=== PATIENT | male | born 1985 | race Two or more races ===

== ENCOUNTER 2017-08-02 12:36 | Emergency (ER) | payer OTHER ==
[2017-08-02 12:40] VITALS: BP 144/77; PULSE 100; TEMP 98; BMI 36.2
[2017-08-02] MEDS ORDERED: KETOROLAC TROMETHAMINE 60 MG/2 ML VIAL IM ONE (14:44)
[2017-08-02] MEDS ORDERED: diazePAM 5 MG TABLET PO ONE (14:44)
--- NOTE | 2017-08-02 14:44 | PDOC ---
History of Present Illness - General Chief Complaint: Back Pain Stated Complaint: BACK PAIN Time Seen by Provider: 08/02/17 14:38 History Source: Patient Exam Limitations: No Limitations - History of Present Illness Initial Comments: 08/02/17 14:38 CHIEF COMPLAINT: [right lateral Lower back pain right shoulder pain after shoveling one week ago] HISTORY OF PRESENT ILLNESS:[32]-year-old [male],[ history of low back pain and reports last week he was shoveling and afterwards felt pain to right lateral lower back and right shoulder. Has had similar in the past. Has been taking Advil with minimal relief. Nonradiating pain, no neurosensory deficits, no bowel or bladder difficulty incontinence or urinary retention, no saddle anesthesia, no footdrop. No history of IVDU or history of cancer. ] REVIEW OF SYSTEMS: GENERAL: Afebrile, denies any weakness RESPIRATORY: No cough, wheezing, or hemoptysis. CARDIAC: No chest pain or shortness of breath MUSCULOSKELETAL: Pain to generalized lower back. No point tenderness. Pain worse on [right than left. ] SKIN : No erythema, no bruising, no deformity. GI/: Denies any abdominal pain, no urinary difficulty, incontinence or urinary retention. RECTAL: Denies any difficulty this A.m. NEUROLOGICAL: Denies any numbness or tingling. No neurosensory deficits. PHYSICAL EXAM: GENERAL: The patient is awake, alert, and fully oriented, in no acute distress. RESPIRATORY: Lungs clear bilaterally, no rhonchi wheezes or crackles CARDIAC: S1-S2 audible, no murmur rub or gallop MUSCULOSKELETAL: Pain to generalized lower back, nonradiating, no tingling or sensory deficit. Less than 2 second cap refill, +4 popliteal and pedal pulses. GI/: Abdomen soft, nontender, nondistended. No rebound tenderness. No masses palpable. MUSCULOSKELETAL: No spinal point tenderness. Normal reflexive and no deficits to sensation or strength. RECTAL: [Deferred patient with no neurological findings] SKIN: Warm, Dry, normal turgor, no erythema, no edema no bruising. Past History - Past Medical History Allergies/Adverse Reactions: Allergies Allergy/AdvReac Type Severity Reaction Status Date / Time shellfish derived Allergy Intermediate Itching Verified 08/02/17 12:37 No Known Drug Allergies Allergy Verified 08/02/17 12:37 Home Medications: Ambulatory Orders Cyclobenzaprine HCl [Flexeril 10 mg] 10 mg PO BID PRN #20 tablet 08/02/17 Methylprednisolone [Medrol Dose Nestor] 4 mg PO ASDIR #21 tablet 08/02/17 COPD: No GI Disorders: Yes (COLITIS) - Immunization History Immunization Up to Date: No (NO FLU) - Suicide/Smoking/Psychosocial Hx Smoking History: Current every day smoker Have you smoked in the past 12 months: Yes Number of Cigarettes Smoked Daily: 10 Information on smoking cessation initiated: Yes 'Breaking Loose' booklet given: 08/02/17 Hx Alcohol Use: No Drug/Substance Use Hx: No Substance Use Type: None Hx Substance Use Treatment: No Trauma Specific PMHX - Complaint Specific PMHX Back Injury: Yes Neck Injury: No *Physical Exam - Vital Signs Last Vital Signs Temp Pulse Resp BP Pulse Ox 98.0 F 100 H 18 144/77 96 08/02/17 12:37 08/02/17 12:37 08/02/17 12:37 08/02/17 12:37 08/02/17 12:37 Medical Decision Making - Medical Decision Making 08/02/17 14:44 A/P: Patient here with lower back pain, chronic in nature exacerbated after shoveling snow I will give Toradol and Valium, then reevaluate 08/02/17 15:47 Patient reports that pain is better after medication will discharge patient home on Medrol Dosepak and Flexeril, follow-up with PMD if any increased pain numbness or tingling bowel or bladder difficulty or any other concerns return to ER *DC/Admit/Observation/Transfer Diagnosis at time of Disposition: Lower back pain Qualifiers: Chronicity: acute Back pain laterality: right Sciatica presence: with sciatica - Discharge Dispostion Disposition: HOME Condition at time of disposition: Stable Admit: No - Prescriptions Prescriptions: Cyclobenzaprine HCl [Flexeril 10 mg] 10 mg PO BID PRN #20 tablet PRN Reason: Pain Methylprednisolone [Medrol Dose Nestor] 4 mg PO ASDIR #21 tablet - Referrals Referrals: Leoncio Vargas MD [Staff Physician] - - Patient Instructions Printed Discharge Instructions: DI for Low Back Pain Additional Instructions: 1. Please return to the emergency department with any numbness, tingling, weakness, numbness or tingling to groin or legs, or loss of bowel or bladder function. 2. Use pain medication as ordered. 3. Please is to followup in the office of Dr. Vargas for evaluation within a week if no improvement. 4. Ice or heat 5. Refrain from lifting anything above 10 pounds, until pain resolved. - Post Discharge Activity Forms/Work/School Notes: Back to Work
[2017-08-02] MEDS ORDERED: KETOROLAC TROMETHAMINE 60 MG/2 ML VIAL ONE (14:47)
[2017-08-02] MEDS ORDERED: diazePAM 5 MG TABLET ONE (14:47)
== END 2017-08-02 15:50 | disposition home or self-care (01) ==
LOC: JERFT 12:36
PROC: 3E0233Z Introduction of Anti-inflammatory into Muscle, Percutaneous Approach (ICD-10-PCS; principal; 2017-08-02)
DX: M54.41 Lumbago with sciatica, right side (principal); F17.210 Nicotine dependence, cigarettes, uncomplicated; X50.0XXA Overexertion from strenuous movement or load, initial encounter; Y93.H1 Activity, digging, shoveling and raking; Y92.89 Other specified places as the place of occurrence of the external cause; Y99.8 Other external cause status
CPT/HCPCS: 99281-25

== ENCOUNTER 2018-08-06 20:58 | Emergency (ER) | payer OTHER ==
[2018-08-06 21:15] VITALS: BMI 37.2
[2018-08-06] MEDS ORDERED: ACETAMINOPHEN 325 MG TABLET (FP) PO ONE (21:15)
--- NOTE | 2018-08-06 21:15 | PDOC ---
Rapid Medical Evaluation Time Seen by Provider: 08/06/18 21:12 Medical Evaluation: Allergies Allergy/AdvReac Type Severity Reaction Status Date / Time shellfish derived Allergy Intermediate Itching Verified 08/02/17 12:37 No Known Drug Allergies Allergy Verified 08/02/17 12:37 08/06/18 21:12 Pt presents to the ED after falling off of a yi at work. Pt states he fell 6 feet. Denies hitting his head or LOC. C/o R wrist pain, R elbow pain, R hip pain /back pain Exam: hematoma above hip Orders: X-ray, labs Pt to proceed to ED for further evaluation Discharge Disposition - Diagnosis Fall Qualifiers: Encounter type: initial encounter Qualified Code(s): W19.XXXA - Unspecified fall, initial encounter - Referrals - Patient Instructions - Post Discharge Activity
[2018-08-06] MEDS ORDERED: ACETAMINOPHEN 325 MG TABLET (FP) ONE (22:04)
[2018-08-06 22:42] LABS: URINE APPEARANCE CLEAR; URINE BILIRUBIN NEGATIVE (<2.0 mg/dL); URINE COLOR YELLOW; URINE GLUCOSE (UA) NEGATIVE (NEGATIVE); URINE KETONE NEGATIVE (NEGATIVE); URINE LEUK ESTERASE NEGATIVE (NEGATIVE); URINE NITRITE NEGATIVE (NEGATIVE); URINE PROTEIN NEGATIVE (NEGATIVE); URINE UROBILINOGEN NEGATIVE mg/dL (0.2-1.0)
--- NOTE | 2018-08-06 23:03 | PDOC ---
History of Present Illness - General Chief Complaint: Injury Stated Complaint: FALL Time Seen by Provider: 08/06/18 21:12 - History of Present Illness Initial Comments: 08/06/18 22:59 33-year-old male without comorbidities presents for evaluation after 7 foot fall off a yi. He denies hitting his head however he does states he's unsure about hitting his head. He denies headache or post injury nausea vomiting. No loss of consciousness. He complains of right-sided flank pain and right hip pain. As well as right wrist and elbow pain. 08/06/18 23:00 Past History - Past Medical History Allergies/Adverse Reactions: Allergies Allergy/AdvReac Type Severity Reaction Status Date / Time shellfish derived Allergy Intermediate Itching Verified 08/02/17 12:37 No Known Drug Allergies Allergy Verified 08/02/17 12:37 Home Medications: Ambulatory Orders NK [No Known Home Medication] 08/06/18 COPD: No GI Disorders: Yes (COLITIS) - Immunization History Immunization Up to Date: No (NO FLU) - Suicide/Smoking/Psychosocial Hx Smoking History: Never smoked Have you smoked in the past 12 months: Yes Number of Cigarettes Smoked Daily: 10 'Breaking Loose' booklet given: 08/02/17 Hx Alcohol Use: No Drug/Substance Use Hx: No Substance Use Type: None Hx Substance Use Treatment: No Review of Systems - Review of Systems : Yes: Flank Pain Musculoskeletal: Yes: See HPI, Joint Pain *Physical Exam - Vital Signs Last Vital Signs Temp Pulse Resp BP Pulse Ox 98.8 F 84 20 145/84 97 08/06/18 21:10 08/06/18 21:10 08/06/18 21:10 08/06/18 21:10 08/06/18 21:10 - Physical Exam Comments: 08/06/18 23:00 HEAD: NC/AT EYES: Conjuntiva clear Ears: Canals and TM's normal NOSE: No d/c THROAT: Moist mucous membrances, oral pharanx clear, uvula midline NECK: Supple without adenopathy CARDIAC: S1 S2 LUNGS: CTA Full and Equal breath sounds ABDOMEN: Soft NT ND; there is a large right sided hematoma above the iliac crest with flank tenderness MS: Full ROM in all joints without edema NEUROLOGIC: No gross sensory or motor deficits, NVID SKIN: Normal color and temperature no lesions or rashes Right wrist is swollen skin color and temperature are normal. Is exquisite tenderness about the DRUJ. There are no gross sensorimotor deficits. He is neurovascularly intact There is a superficial abrasion about the right elbow posterior aspect. Full range of motion with supination and pronation without discomfort. Moderate Sedation - Procedure Monitoring Vital Signs: Procedure Monitoring Vital Signs Temperature 98.8 F 08/06/18 21:10 Pulse Rate 84 08/06/18 21:10 Respiratory Rate 20 08/06/18 21:10 Blood Pressure 145/84 08/06/18 21:10 O2 Sat by Pulse Oximetry (%) 97 08/06/18 21:10 ED Treatment Course - RADIOLOGY Radiology Studies Ordered: Category Date Time Status ABDOMEN & PELVIS CT W/O CONTR [CT] Stat CT Scan 08/06/18 22:[address] W/O CONTR [CT] Stat CT Scan 08/06/18 22:[address] WITHOUT CONTRAST [CT] Stat CT Scan 08/06/18 22:[address] WITHOUT CONTRAST [CT] Stat CT Scan 08/06/18 22:58 Ordered - Medications Given in the ED: ED Medications Discontinued Medications Generic Name Dose Route Start Last Admin Trade Name Freq PRN Reason Stop Dose Admin Acetaminophen 650 mg 08/06/18 21:15 08/06/18 22:08 Tylenol - PO 08/06/18 21:16 650 mg ONCE ONE Administration Medical Decision Making - Medical Decision Making 08/06/18 23:01 This is a polytrauma. I'm suspicious for right flank retroperitoneal hematoma from the trauma CAT scan orders was placed. I've also ordered CT of the head and cervical spine although he has no complaints of headache injury he is unsure if he hit his head I'm concerned about a distracting injury. He has a right wrist sprain with a widened DRUJ on radiograph he will be unable to use crutches. Or at least have some difficulty with crutch walking. He may require a platform walker. CAT scan of the chest abdomen and pelvis without contrast was ordered as well as head CT and cervical spine CT. X-rays of the hip elbow and pelvis show no evidence of fractures. A patient was signed out to the main emergency room CBC chemistry and coagulation studies were ordered. *DC/Admit/Observation/Transfer Diagnosis at time of Disposition: Fall Qualifiers: Encounter type: initial encounter Qualified Code(s): W19.XXXA - Unspecified fall, initial encounter - Referrals - Patient Instructions - Post Discharge Activity
[2018-08-06 23:38] LABS: BASO % 0.3 % (0-2.0); EOS % 2.2 % (0-4.5); HEMATOCRIT 41.2 % (35.4-49); HEMOGLOBIN 14.4 GM/dL (11.7-16.9); LYMPH % 36.1 % (8-40); MCH 30.7 pg (25.7-33.7); MCHC 34.9 g/dl (32.0-35.9); MEAN CELL VOLUME 87.9 fl (80-96); MEAN PLT VOLUME 8.1 fl (7.5-11.1); MONO % 9.4 % (3.8-10.2); PLATELET COUNT 252 K/MM3 (134-434); RBC 4.69 M/mm3 (4.00-5.60); RDW 13.9 % (11.9-15.9); WHITE BLOOD COUNT 10.9 K/mm3 (4.0-10.0)
[2018-08-06 23:48] LABS: EPI CELLS RARE /HPF (FEW); URINE BACTERIA RARE /hpf (NONE SEEN); URINE MUCUS FEW
[2018-08-06 23:55] LABS: INR 1.04 (0.83-1.09); PROTHROMBIN TIME (PATIENT) 12.3 SEC (9.7-13.0)
--- NOTE | 2018-08-06 23:59 | PDOC ---
*Physical Exam - Vital Signs Last Vital Signs Temp Pulse Resp BP Pulse Ox 98.8 F 84 20 145/84 97 08/06/18 21:10 08/06/18 21:10 08/06/18 21:10 08/06/18 21:10 08/06/18 21:10 <Cathryn Briggs - Last Filed: 08/07/18 01:54> - Vital Signs Last Vital Signs Temp Pulse Resp BP Pulse Ox 98.8 F 84 20 145/84 97 08/06/18 21:10 08/06/18 21:10 08/06/18 21:10 08/06/18 21:10 08/06/18 21:10 - Physical Exam General Appearance: Yes: Appropriately Dressed Gastrointestinal/Abdominal: positive: Other (large right flank hematoma) Musculoskeletal: positive: Normal Inspection Extremity: positive: Normal Capillary Refill, Normal Inspection, Other (right hip limited rom) Integumentary: positive: Normal Color, Dry, Warm Neurologic: positive: Alert <Karley Doran - Last Filed: 08/07/18 04:14> ED Treatment Course - LABORATORY CBC & Chemistry Diagram: 08/06/18 23:00 08/06/18 23:00 - ADDITIONAL ORDERS Additional order review: Laboratory Results 08/06/18 08/06/18 08/06/18 23:00 23:00 22:15 PT with INR 12.30 INR 1.04 Sodium 143 Potassium 3.7 Chloride 109 H Carbon Dioxide 27 Anion Gap 8 BUN 17 Creatinine 0.8 Creat Clearance w eGFR > 60 Random Glucose 109 H Calcium 8.8 Total Bilirubin 0.2 AST 23 ALT 44 Alkaline Phosphatase 105 Total Protein 7.1 Albumin 3.8 Urine Color Yellow Urine Appearance Clear Urine pH 5.0 Ur Specific [place] 1.028 Urine Protein Negative Urine Glucose (UA) Negative Urine Ketones Negative Urine Blood 1+ H Urine Nitrite Negative Urine Bilirubin Negative Urine Urobilinogen Negative Ur Leukocyte Esterase Negative Urine WBC (Auto) 2 Urine RBC (Auto) 12 Ur Epithelial Cells Rare Urine Bacteria Rare Urine Mucus Few 08/06/18 23:00 RBC 4.69 MCV 87.9 MCHC 34.9 RDW 13.9 MPV 8.1 Neutrophils % 52.0 Lymphocytes % 36.1 Monocytes % 9.4 Eosinophils % 2.2 Basophils % 0.3 - Medications Given in the ED: ED Medications Discontinued Medications Generic Name Dose Route Start Last Admin Trade Name Evelia PRN Reason Stop Dose Admin Acetaminophen 650 mg 08/06/18 21:15 08/06/18 22:08 Tylenol - PO 08/06/18 21:16 650 mg ONCE ONE Administration Morphine Sulfate 4 mg 08/07/18 01:08 08/07/18 01:42 Morphine Injection - IVPUSH 08/07/18 01:09 4 mg ONCE ONE Administration Oxycodone/Acetaminophen 1 combo 08/07/18 00:33 08/07/18 01:42 Percocet 5/325 - PO 08/07/18 00:34 Not Given ONCE ONE Sodium Chloride 1,000 ml 08/07/18 01:08 08/07/18 01:42 Normal Saline - IV 08/07/18 01:09 1,000 ml ONCE ONE Administration <Cathryn Briggs - Last Filed: 08/07/18 01:54> - LABORATORY CBC & Chemistry Diagram: 08/06/18 23:00 08/06/18 23:00 - ADDITIONAL ORDERS Additional order review: Laboratory Results 08/06/18 08/06/18 23:00 22:15 PT with INR 12.30 INR 1.04 Urine Color Yellow Urine Appearance Clear Urine pH 5.0 Ur Specific [place] 1.028 Urine Protein Negative Urine Glucose (UA) Negative Urine Ketones Negative Urine Blood 1+ H Urine Nitrite Negative Urine Bilirubin Negative Urine Urobilinogen Negative Ur Leukocyte Esterase Negative Urine WBC (Auto) 2 Urine RBC (Auto) 12 Ur Epithelial Cells Rare Urine Bacteria Rare Urine Mucus Few 08/06/18 23:00 RBC 4.69 MCV 87.9 MCHC 34.9 RDW 13.9 MPV 8.1 Neutrophils % 52.0 Lymphocytes % 36.1 Monocytes % 9.4 Eosinophils % 2.2 Basophils % 0.3 - Medications Given in the ED: ED Medications Discontinued Medications Generic Name Dose Route Start Last Admin Trade Name Evelia PRN Reason Stop Dose Admin Acetaminophen 650 mg 08/06/18 21:15 08/06/18 22:08 Tylenol - PO 08/06/18 21:16 650 mg ONCE ONE Administration <Karley Doran - Last Filed: 08/07/18 04:14> Medical Decision Making - Medical Decision Making 08/07/18 03:57trauma CT scan : significant for large hematoma. UA +1 blood. i spoke to trauma surgeon Dr. Perez. accepted patient for trauma evaluation. 08/07/18 04:12 <Karley Doran - Last Filed: 08/07/18 04:14> *DC/Admit/Observation/Transfer <Cathryn Briggs - Last Filed: 08/07/18 01:54> <Karley Doran - Last Filed: 08/07/18 04:14> Diagnosis at time of Disposition: Trauma, Flank pain, acute Fall Qualifiers: Encounter type: initial encounter Qualified Code(s): W19.XXXA - Unspecified fall, initial encounter Hip pain Qualifiers: Laterality: right Qualified Code(s): M25.551 - Pain in right hip - Discharge Dispostion Disposition: TRANSFER ACUTE CARE/OTHER HOSP
[2018-08-07 00:03] LABS: ALBUMIN 3.8 g/dl (3.4-5.0); ALK PHOS 105 U/L (45-117); ANION GAP 8 MMOL/L (8-16); BILIRUBIN,TOTAL 0.2 mg/dL (0.2-1); BLOOD UREA NITROGEN 17 mg/dL (7-18); CALCIUM 8.8 mg/dL (8.5-10.1); CHLORIDE 109 mmol/L (98-107); CO2 27 mmol/L (21-32); CREATININE 0.8 mg/dL (0.55-1.3); GLUCOSE,RANDOM 109 mg/dL (74-106); POTASSIUM 3.7 mmol/L (3.5-5.1); SGOT/AST 23 U/L (15-37); SGPT/ALT 44 U/L (13-61); SODIUM 143 mmol/L (136-145); TOT PROT 7.1 g/dl (6.4-8.2)
[2018-08-07] MEDS ORDERED: SODIUM CHLORIDE 0.9% 500 ML INFUS.BAG IV ONE (01:08)
[2018-08-07] MEDS ORDERED: morphine CARPU-JECT 4 MG/1 ML DISP.SYRIN IVPUSH ONE (01:08)
[2018-08-07] MEDS ORDERED: morphine SULFATE 4 MG/ML VIAL ONE ×2 (01:25→02:31)
[2018-08-07 06:43] VITALS: BP 137/85; PULSE 77; TEMP 98.4
== END 2018-08-07 03:35 | disposition short-term general hospital (02) ==
LOC: JERFT 20:58 → JER 20:58
PROC: 3E033NZ Introduction of Analgesics, Hypnotics, Sedatives into Peripheral Vein, Percutaneous Approach (ICD-10-PCS; principal; 2018-08-06)
DX: S30.0XXA Contusion of lower back and pelvis, initial encounter (principal); V83.5XXA Driver of special industrial vehicle injured in nontraffic accident, initial encounter; Y93.H3 Activity, building and construction; Y92.69 Other specified industrial and construction area as the place of occurrence of the external cause; Y99.0 Civilian activity done for income or pay
CPT/HCPCS: 36415; 70450-TC; 71250-TC; 72125-TC; 73070-TC-RT-FY; 73110-TC-RT-FY; 73130-TC-RT-FY; 73523-TC-FY; 74176-TC; 80053; 81003; 81015; 85025; 85610; 99284-25